=== PATIENT | female | born 1935 | race Caucasian/White ===

== ENCOUNTER 2019-01-08 17:20 | Inpatient (IN) | payer OTHER ==
[~2019-01-08] VITALS: Ht 165.1 cm; Wt 88.2 kg
[2019-01-08] MEDS ORDERED: IV NORMAL SALINE 1000ML BAG 1,000 ML IV SCH (17:39)
[2019-01-08] MEDS ORDERED: fentaNYL PF VIAL 100 MCG/2 ML VIAL IV PRN (17:45)
[2019-01-08] MEDS ORDERED: ONDANSETRON PF 4 MG/2 ML VIAL. IV ONE (17:45)
--- NOTE | 2019-01-08 17:46 | PHYS DOC ---
Adult General Chief Complaint Chief Complaint: CHEST PAIN HPI HPI Patient is an 83-year-old female who presents today with complaint of right upper quadrant abdominal pain that started yesterday. She states that symptoms started out as what she described as severe heartburn on Monday in the center of her chest. She states that the heartburn resolved on Monday and then yesterday she started having the pain in her right upper abdomen that she states is worsened with deep breathing. She denies any nausea, vomiting or diaphoresis. Currently she rates the pain at a 5 out of 10. She states that at its worse it's been a 10 out of 10. She denies any cough or shortness of breath. She also denies any fever. Patient states that she has had no diarrhea.[] Review of Systems Review of Systems Constitutional: Denies fever or chills [] Respiratory: Denies cough or shortness of breath [] Cardiovascular: No additional information not addressed in HPI [] GI: Complains of right upper quadrant abdominal pain without vomiting or diarrhea [] : Denies dysuria or hematuria [] Musculoskeletal: Denies back pain or joint pain [] Integument: Denies rash or skin lesions [] Neurologic: Denies headache, focal weakness or sensory changes [] All other systems were reviewed and found to be within normal limits, except as documented in this note. Allergies Allergies Allergies Coded Allergies Type Severity Reaction Last Updated Verified prednisone Allergy Intermediate 01/08/19 Yes Physical Exam Physical Exam Constitutional: Well developed, well nourished, no acute distress, non-toxic appearance. [] HENT: Normocephalic, atraumatic, bilateral external ears normal, oropharynx moist, no oral exudates, nose normal. [] Eyes: PERRLA, EOMI, conjunctiva normal, no discharge. [] Neck: Normal range of motion, no tenderness, supple, no stridor. [] Cardiovascular: Regular rate and rhythm[] Lungs & Thorax: Bilateral breath sounds clear to auscultation [] Abdomen: Bowel sounds normal, soft, with moderate right upper quadrant tenderness. [] Skin: Warm, dry, no erythema, no rash. [] Extremities: No tenderness, no cyanosis, no clubbing, ROM intact, no edema. [] Neurologic: Alert and oriented X 3, no focal deficits noted. [] EKG EKG [] Interpretation Time: EKG demonstrates normal sinus rhythm with rate of 94. Radiology/Procedures Radiology/Procedures [] Course & Med Decision Making Course & Med Decision Making Pertinent Labs and Imaging studies reviewed. (See chart for details) [] Dragon Disclaimer Dragon Disclaimer This electronic medical record was generated, in whole or in part, using a voice recognition dictation system. SUDHIR BRAGA Jr. DO Jan 08, 2019 17:46
[2019-01-08 17:47] LABS: BASO # 0.1 x10^3/uL (0.0-0.2); BASO % 1 % (0-3); EOS # 0.1 x10^3/uL (0.0-0.7); EOS % 1 % (0-3); LYMPH # 1.4 x10^3/uL (1.0-4.8); LYMPH % 9 % (24-48); MEAN CORPUSCULAR HEMOGLOBIN 30 pg (25-35); MEAN CORPUSCULAR HGB CONC 33 g/dL (31-37); MEAN CORPUSCULAR VOLUME 91 fL (79-100); MONO # 1.6 x10^3/uL (0.0-1.1); MONO % 10 % (0-9); NEUT # 12.3 x10^3/uL (1.8-7.7); NEUT % 80 % (31-73); PLATELET COUNT 297 x10^3/uL (140-400); RED BLOOD COUNT 4.63 x10^6/uL (3.50-5.40); RED CELL DISTRIBUTION WIDTH 13.5 % (11.5-14.5); WHITE BLOOD COUNT 15.4 x10^3/uL (4.0-11.0)
[2019-01-08 17:56] LABS: CALCIUM 9.6 mg/dL (8.5-10.1); CREATININE 1.7 mg/dL (0.6-1.0); GFR 28.8; POTASSIUM 3.2 mmol/L (3.5-5.1)
[2019-01-08 18:02] LABS: ALBUMIN 3.1 g/dL (3.4-5.0); ALBUMIN/GLOBULIN RATIO 0.6 (1.0-1.7); TOTAL BILIRUBIN 1.4 mg/dL (0.2-1.0); TOTAL PROTEIN 8.3 g/dL (6.4-8.2)
[2019-01-08 18:09] LABS: BILIRUBIN,URINE SMALL (NEG); CLARITY,URINE CLOUDY; COLOR,URINE AMBER; NITRITE,URINE NEGATIVE (NEG); PROTEIN,URINE 30 mg/dL (NEG-TRACE)
[2019-01-08 18:17] LABS: BACTERIA,URINE MANY /HPF (0-FEW); HYALINE CASTS, URINE FEW /HPF; RBC,URINE OCC /HPF (0-2); SQUAMOUS EPITHELIAL CELL,UR MANY /LPF
[2019-01-08] MEDS ORDERED: PIPERACILLIN/TAZOBACTAM 3.375 GM in IV NORMAL SALINE 50ML 50 ML IV ONE (19:30)
--- NOTE | 2019-01-08 20:02 | RAD ---
Exam: Ultrasound abdomen limited Indication: Right upper quadrant pain Technique: Real-time grayscale and color Doppler images of the right upper quadrant were obtained by the department valve pipe irrigator. Comparisons: None FINDINGS: Liver demonstrates increased echogenicity. Hepatopedal flow is noted within the portal vein. Gallbladder is distended measuring 9 cm in length. Gallstone is noted at the gallbladder neck. There is mild gallbladder wall thickening. Sonographic Cox sign is positive per the department valve pipe irrigator. Right kidney measures 10.8 cm in length. No hydronephrosis. Visualized portions of the aorta and IVC are unremarkable. Uterus is not well seen IMPRESSION: 1. Findings suspicious for acute cholecystitis. HIDA scan can BE performed for definitive evaluation. 2. Hepatic steatosis. 3. No right-sided hydronephrosis. Electronically signed by: Syed Grewal MD (01/08/2019 7:59 PM) [facility]
[2019-01-08] MEDS ORDERED: ONDANSETRON PF 4 MG/2 ML VIAL. IVP PRN (20:30)
[2019-01-08] MEDS ORDERED: LABETALOL 20 MG/4 ML DISP.SYRIN. IVP PRN (20:30)
[2019-01-08] MEDS ORDERED: fentaNYL PF VIAL 100 MCG/2 ML VIAL IVP PRN (20:30)
[2019-01-08] MEDS ORDERED: ACETAMINOPHEN/CODEINE 300/30MG TABLET. PO PRN (20:30)
[2019-01-08] MEDS ORDERED: TEMAZEPAM 7.5 MG CAPSULE PO PRN (20:30)
[2019-01-08] MEDS: POTASSIUM CL 20MEQ D5-0.45NACL 1,000 ML IV SCH (20:30)
[2019-01-08] MEDS ORDERED: ACETAMINOPHEN 500 MG TABLET PO PRN (20:30)
[2019-01-08] MEDS ORDERED: PANTOPRAZOLE IV PUSH 40 MG VIAL. IVP ONE (20:30)
[2019-01-08] MEDS ORDERED: CALCIUM CARBONATE 500 MG TAB.CHEW PO PRN (20:30)
[2019-01-08] MEDS ORDERED: guaiFENesin DM 200MG/20MG 10 ML SYRUP PO PRN (20:30)
[2019-01-08 21:10] VITALS: BP 144/57
--- NOTE | 2019-01-08 21:11 | RAD ---
Ventilation perfusion exam History: Chest pain Comparison: None Findings: Ventilation perfusion examination was performed. Ventilation images were acquired after the patient inhaled 20 mCi mCi of [id number]. Perfusion images were acquired after the patient was injected with 6.6 mCi of technetium 99m MAA. There is mild heterogeneity of radiotracer on ventilation images. No mismatched perfusion defect is identified. Impression: There is low probability for pulmonary embolic disease. Electronically signed by: Syed Grewal MD (01/08/2019 9:08 PM) [facility]
--- NOTE | 2019-01-08 22:01 | RAD ---
EXAM: CHEST ONE VIEW. HISTORY: Chest and right upper quadrant. COMPARISON: None. FINDINGS: A frontal view of the chest is obtained. Linear opacities in the right base most likely indicate atelectasis. There is no pneumothorax or pleural effusion. The heart is mildly enlarged. There are atherosclerotic calcifications of the aorta. IMPRESSION: 1. Mild cardiomegaly. Electronically signed by: Zackary Hernandez MD (01/08/2019 9:59 PM) [facility]
[2019-01-08 23:42] VITALS: BP 154/62
[2019-01-09] VITALS (12 sets, daily range): BP systolic 138–172; BP diastolic 57–75
[2019-01-09] MEDS ORDERED: HYDR50TA6 PO (05:59)
[2019-01-09] MEDS ORDERED: METO100T7 PO (06:03)
[2019-01-09] MEDS ORDERED: CHOL10003 PO (06:03)
[2019-01-09] MEDS ORDERED: KRIL500C PO (06:03)
[2019-01-09] MEDS ORDERED: OLME20TA17 PO (06:03)
[2019-01-09] MEDS ORDERED: OMEP20CA10 PO (06:03)
[2019-01-09 06:38] LABS: BASO % 0 % (0-3); EOS # 0.1 x10^3/uL (0.0-0.7); EOS % 1 % (0-3); HEMATOCRIT 36.5 % (36.0-47.0); HEMOGLOBIN 12.1 g/dL (12.0-15.5); LYMPH # 0.4 x10^3/uL (1.0-4.8); LYMPH % 3 % (24-48); MEAN CORPUSCULAR HEMOGLOBIN 30 pg (25-35); MEAN CORPUSCULAR HGB CONC 33 g/dL (31-37); MEAN CORPUSCULAR VOLUME 92 fL (79-100); MONO # 0.6 x10^3/uL (0.0-1.1); MONO % 5 % (0-9); NEUT # 9.6 x10^3/uL (1.8-7.7); NEUT % 90 % (31-73); PLATELET COUNT 191 x10^3/uL (140-400); RED BLOOD COUNT 3.98 x10^6/uL (3.50-5.40); RED CELL DISTRIBUTION WIDTH 13.4 % (11.5-14.5); WHITE BLOOD COUNT 10.6 x10^3/uL (4.0-11.0)
[2019-01-09 06:42] LABS: CALCIUM 8.5 mg/dL (8.5-10.1); CREATININE 1.4 mg/dL (0.6-1.0)
[2019-01-09 06:44] LABS: POTASSIUM 2.8 mmol/L (3.5-5.1)
--- NOTE | 2019-01-09 06:45 | EKG ---
[facility] [address] [place] [address] Test Date: 2019-01-08 Test Time: 17:29:12 Pat Name: MARIA ISABEL HARRINGTON Department: Room: Gender: F [employer]: : 1935 Requested By: SUDHIR BRAGA Order Number: [id number] Reading MD: Measurements Intervals [place] Rate: 94 P: 6 TX: 176 QRS: 10 QRSD: 84 T: 16 QT: 356 QTc: 450 Interpretive Statements SINUS RHYTHM T ABNORMALITY IN ANTEROLATERAL LEADS NON SPECIFIC ST DEPRESSION ABNORMAL ECG No previous ECG available for comparison
[2019-01-09] MEDS ORDERED: PANTOPRAZOLE IV PUSH 40 MG VIAL. IVP SCH (07:30)
[2019-01-09] MEDS ORDERED: POTASSIUM CHLORIDE 20 MEQ TABLET.ER. PO ONE (08:00)
[2019-01-09] MEDS ORDERED: IV RINGERS,LACTATED 1000ML 1,000 ML IV SCH (08:39)
[2019-01-09] MEDS ORDERED: HYDROmorphone 2 MG/ML VIAL IV PRN (08:45)
[2019-01-09] MEDS ORDERED: LIDOCAINE 1% PF 2 ML VIAL. ID PRN (08:45)
[2019-01-09] MEDS ORDERED: fentaNYL PF VIAL 100 MCG/2 ML VIAL IV PRN (08:45)
[2019-01-09] MEDS ORDERED: ONDANSETRON PF 4 MG/2 ML VIAL. IV PRN (08:45)
[2019-01-09] MEDS ORDERED: MORPHINE SULFATE 2 MG/ML VIAL. IV PRN (08:45)
[2019-01-09] MEDS ORDERED: PROCHLORPERAZINE 10 MG/2 ML VIAL. IV PRN (08:45)
--- NOTE | 2019-01-09 08:47 | PDOC2 ---
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 Associated nausea, loss of appetite. Pain improved, however family concerned with possible heart attack. Evaluation revealed imaging concerning for acute cholecystitis.. No similar symptoms in past. No constipation or diarrhea Past Medical History Cardiovascular: HTN GI: GERD Past Surgical History Past Surgical History: Tonsillectomy, No pertinent history Family History Family History: Other (noncontributory to current illness ) Social History No ALCOHOL: none Drugs: None Lives: with Family Current Medications Current Medications Current Medications Fentanyl Citrate (Fentanyl 2ml Vial) 25 mcg PRN Q15MIN PRN IV PAIN GREATER THAN 3/10 Last administered on 01/08/19at 17:59; Start 01/08/19 at 17:45; Stop 01/08/19 at 20:24; Status DC Sodium Chloride 1,000 ml @ 1,000 mls/hr Q1H IV Last administered on 01/08/19at 17:58; Start 01/08/19 at 17:39; Stop 01/08/19 at 18:38; Status DC Ondansetron HCl (Zofran) 4 mg 1X ONCE IV Last administered on 01/08/19at 17:58; Start 01/08/19 at 17:45; Stop 01/08/19 at 17:46; Status DC Piperacillin Sod/ Tazobactam Sod 3.375 gm/Sodium Chloride 50 ml @ 100 mls/hr 1X ONCE IV Last administered on 01/08/19at 19:40; Start 01/08/19 at 19:30; Stop 01/08/19 at 19:59; Status DC Potassium Chloride/Dextrose/ Sod Cl 1,000 ml @ 80 mls/hr [id number] IV Last administered on 01/08/19at 20:30; Start 01/08/19 at 20:30 Fentanyl Citrate (Fentanyl 2ml Vial) 50 mcg PRN Q2HR PRN IVP PAIN; Start 01/08/19 at 20:30 Ondansetron HCl (Zofran) 4 mg PRN Q6HRS PRN IVP NAUSEA/VOMITING; Start 01/08/19 at 20:30 Acetaminophen (Tylenol) 500 mg PRN Q6HRS PRN PO MILD PAIN / TEMP; Start 01/08/19 at 20:30 Acetaminophen/ Codeine Phosphate (Tylenol #3) 1 tab PRN Q6HRS PRN PO MODERATE PAIN; Start 01/08/19 at 20:30 Temazepam (Restoril) 7.5 mg PRN QHS PRN PO INSOMNIA; Start 01/08/19 at 20:30 Labetalol HCl (Normodyne Iv Push) 10 mg PRN Q2HR PRN IVP HYPERTENSION; Start 01/08/19 at 20:30 Pantoprazole Sodium (PROTONIX VIAL for IV PUSH) 40 mg 1X ONCE IVP Last administered on 01/08/19at 22:47; Start 01/08/19 at 20:30; Stop 01/08/19 at 20:31; Status DC Pantoprazole Sodium (PROTONIX VIAL for IV PUSH) 40 mg DAILYAC IVP ; Start 01/09/19 at 07:30 Guaifenesin (Robitussin Dm) 10 ml PRN Q6HRS PRN PO COUGH; Start 01/08/19 at 20:30 Calcium Carbonate/ Glycine (Tums) 500 mg PRN AFTMEALHC PRN PO INDIGESTION; Start 01/08/19 at 20:30 Potassium Chloride (Klor-Con) 20 meq 1X ONCE PO ; Start 01/09/19 at 08:00; Stop 01/09/19 at 08:01; Status DC Potassium Chloride/Water 100 ml @ 100 mls/hr Q1H IV ; Start 01/09/19 at 08:00; Stop 01/09/19 at 09:59 Ondansetron HCl (Zofran) 4 mg PRN Q6HRS PRN IV NAUSEA/VOMITING; Start 01/09/19 at 08:45; Stop 01/10/19 at 08:44 Fentanyl Citrate (Fentanyl 2ml Vial) 25 mcg PRN Q5MIN PRN IV MILD PAIN 1-3; Start 01/09/19 at 08:45; Stop 01/10/19 at 08:44 Fentanyl Citrate (Fentanyl 2ml Vial) 50 mcg PRN Q5MIN PRN IV MODERATE TO SEVERE PAIN; Start 01/09/19 at 08:45; Stop 01/10/19 at 08:44 Morphine Sulfate (Morphine Sulfate) 1 mg PRN Q10MIN PRN IV SEVERE PAIN 7-10; S tart 01/09/19 at 08:45; Stop 01/10/19 at 08:44 Ringer's Solution 1,000 ml @ 30 mls/hr Q24H IV ; Start 01/09/19 at 08:39; Sto p 01/09/19 at 20:38 Lidocaine HCl (Xylocaine-Mpf 1% 2ml Vial) 2 ml 1X PRN PRN ID IV START; Start 01/09/19 at 08:45; Stop 01/10/19 at 08:44 Hydromorphone HCl (Dilaudid) 0.5 mg PRN Q10MIN PRN IV SEV PAIN, Second choice; Start 01/09/19 at 08:45; Stop 01/10/19 at 08:44 Prochlorperazine Edisylate (Compazine) 5 mg PACU PRN PRN IV NAUSEA, MRX1; Start 01/09/19 at 08:45; Stop 01/10/19 at 08:44 Active Scripts Active Reported Omeprazole 20 Mg Capsule.dr 1 Cap PO DAILY Vitamin D3 (Cholecalciferol (Vitamin D3)) 1,000 Unit Tablet 2 Tab PO WEEKLY Krill Oil 500 Mg Capsule 500 Mg PO DAILY Metoprolol Tartrate 100 Mg Tablet 2 Tab PO BID Benicar (Olmesartan Medoxomil) 20 Mg Tablet 1 Tab PO DAILY Hydrochlorothiazide Tablet (Hydrochlorothiazide) 50 Mg Tablet 25 Mg PO DAILY Allergies Allergies: Coded Allergies: prednisone (Verified Allergy, Intermediate, 01/08/19) ROS General: No: Chills, Other (fevers ) PSYCHOLOGICAL ROS: No: Anxiety, Depression Eyes: No Blurry vision, No Double vision HEENT: No: Heacaches, Sore Throat Hematological and Lymphatic: No: Bleeding Problems, Blood Clots Respiratory: No: Cough, Shortness of breath Cardiovascular: yes Chest Pain; No Palpitations Gastrointestinal: Yes Other (see hpi) Genitourinary: No Dysuria, No Hematuria Musculoskeletal: No Joint Pain, No Muscle Pain Neurological: No Impaired Coord/balance, No Numbness/Tingling Skin: No Pruritus, No Rash Physical Exam General: Alert, Oriented X3, Cooperative, No acute distress HEENT: PERRLA, Mucous membr. moist/pink Lungs: Clear to auscultation, Normal air movement Heart: Regular rate, Normal S1, Normal S2 Abdomen: Soft, Other (RUQ TTP ) Extremities: No clubbing, No cyanosis Skin: No rashes, No breakdown Neuro: Normal gait, Normal speech Psych/Mental Status: Mental status NL, Mood NL MUSCULOSKELETAL: No deformity, No swelling Vitals VITALS Vital Signs Date Time Temp Pulse Resp B/P (MAP) Pulse Ox O2 Delivery O2 Flow Rate FiO2 01/09/19 07:15 98.6 76 20 141/57 (85) 95 Room Air 98.6 Labs Labs Laboratory Tests Test 01/08/19 17:36 01/08/19 18:00 01/09/19 03:22 White Blood Count 15.4 x10^3/uL (4.0-11.0) 10.6 x10^3/uL (4.0-11.0) Red Blood Count 4.63 x10^6/uL (3.50-5.40) 3.98 x10^6/uL (3.50-5.40) Hemoglobin 14.0 g/dL (12.0-15.5) 12.1 g/dL (12.0-15.5) Hematocrit 42.0 % (36.0-47.0) 36.5 % (36.0-47.0) Mean Corpuscular Volume 91 fL (79-100) 92 fL (79-100) Mean Corpuscular Hemoglobin 30 pg (25-35) 30 pg (25-35) Mean Corpuscular Hemoglobin Concent 33 g/dL (31-37) 33 g/dL (31-37) Red Cell Distribution Width 13.5 % (11.5-14.5) 13.4 % (11.5-14.5) Platelet Count 297 x10^3/uL (140-400) 191 x10^3/uL (140-400) Neutrophils (%) (Auto) 80 % (31-73) 90 % (31-73) Lymphocytes (%) (Auto) 9 % (24-48) 3 % (24-48) Monocytes (%) (Auto) 10 % (0-9) 5 % (0-9) Eosinophils (%) (Auto) 1 % (0-3) 1 % (0-3) Basophils (%) (Auto) 1 % (0-3) 0 % (0-3) Neutrophils # (Auto) 12.3 x10^3/uL (1.8-7.7) 9.6 x10^3/uL (1.8-7.7) Lymphocytes # (Auto) 1.4 x10^3/uL (1.0-4.8) 0.4 x10^3/uL (1.0-4.8) Monocytes # (Auto) 1.6 x10^3/uL (0.0-1.1) 0.6 x10^3/uL (0.0-1.1) Eosinophils # (Auto) 0.1 x10^3/uL (0.0-0.7) 0.1 x10^3/uL (0.0-0.7) Basophils # (Auto) 0.1 x10^3/uL (0.0-0.2) 0.0 x10^3/uL (0.0-0.2) D-Dimer (Amalia) 2.65 ug/mlFEU (0.00-0.50) Sodium Level 141 mmol/L (136-145) 141 mmol/L (136-145) Potassium Level 3.2 mmol/L (3.5-5.1) 2.8 mmol/L (3.5-5.1) Chloride Level 101 mmol/L (98-107) 104 mmol/L (98-107) Carbon Dioxide Level 26 mmol/L (21-32) 25 mmol/L (21-32) Anion Gap 14 (6-14) 12 (6-14) Blood Urea Nitrogen 29 mg/dL (7-20) 25 mg/dL (7-20) Creatinine 1.7 mg/dL (0.6-1.0) 1.4 mg/dL (0.6-1.0) Estimated GFR (Cockcroft-Gault) 28.8 36.0 BUN/Creatinine Ratio 17 (6-20) Glucose Level 133 mg/dL (70-99) 115 mg/dL (70-99) Calcium Level 9.6 mg/dL (8.5-10.1) 8.5 mg/dL (8.5-10.1) Total Bilirubin 1.4 mg/dL (0.2-1.0) Aspartate Amino Transf (AST/SGOT) 19 U/L (15-37) Alanine Aminotransferase (ALT/SGPT) 18 U/L (14-59) Alkaline Phosphatase 162 U/L (46-116) Troponin I Quantitative < 0.017 ng/mL (0.000-0.055) Total Protein 8.3 g/dL (6.4-8.2) Albumin 3.1 g/dL (3.4-5.0) Albumin/Globulin Ratio 0.6 (1.0-1.7) Lipase 149 U/L (73-393) Urine Collection Type Unknown Urine Color Vera Urine Clarity Cloudy Urine pH 5.0 Urine Specific [place] 1.020 Urine Protein 30 mg/dL (NEG-TRACE) Urine Glucose (UA) Negative mg/dL (NEG) Urine Ketones (Stick) Negative mg/dL (NEG) Urine Blood Trace (NEG) Urine Nitrite Negative (NEG) Urine Bilirubin Small (NEG) Urine Urobilinogen Dipstick 1.0 mg/dL (0.2 mg/dL) Urine Leukocyte Esterase Moderate (NEG) Urine RBC Occ /HPF (0-2) Urine WBC 5-10 /HPF (0-4) Urine Squamous Epithelial Cells Many /LPF Urine Bacteria Many /HPF (0-FEW) Urine Hyaline Casts Few /HPF Urine Mucus Mod /LPF Laboratory Tests Test 01/08/19 17:36 01/08/19 18:00 01/09/19 03:22 White Blood Count 15.4 x10^3/uL (4.0-11.0) 10.6 x10^3/uL (4.0-11.0) Red Blood Count 4.63 x10^6/uL (3.50-5.40) 3.98 x10^6/uL (3.50-5.40) Hemoglobin 14.0 g/dL (12.0-15.5) 12.1 g/dL (12.0-15.5) Hematocrit 42.0 % (36.0-47.0) 36.5 % (36.0-47.0) Mean Corpuscular Volume 91 fL (79-100) 92 fL (79-100) Mean Corpuscular Hemoglobin 30 pg (25-35) 30 pg (25-35) Mean Corpuscular Hemoglobin Concent 33 g/dL (31-37) 33 g/dL (31-37) Red Cell Distribution Width 13.5 % (11.5-14.5) 13.4 % (11.5-14.5) Platelet Count 297 x10^3/uL (140-400) 191 x10^3/uL (140-400) Neutrophils (%) (Auto) 80 % (31-73) 90 % (31-73) Lymphocytes (%) (Auto) 9 % (24-48) 3 % (24-48) Monocytes (%) (Auto) 10 % (0-9) 5 % (0-9) Eosinophils (%) (Auto) 1 % (0-3) 1 % (0-3) Basophils (%) (Auto) 1 % (0-3) 0 % (0-3) Neutrophils # (Auto) 12.3 x10^3/uL (1.8-7.7) 9.6 x10^3/uL (1.8-7.7) Lymphocytes # (Auto) 1.4 x10^3/uL (1.0-4.8) 0.4 x10^3/uL (1.0-4.8) Monocytes # (Auto) 1.6 x10^3/uL (0.0-1.1) 0.6 x10^3/uL (0.0-1.1) Eosinophils # (Auto) 0.1 x10^3/uL (0.0-0.7) 0.1 x10^3/uL (0.0-0.7) Basophils # (Auto) 0.1 x10^3/uL (0.0-0.2) 0.0 x10^3/uL (0.0-0.2) D-Dimer (Amalia) 2.65 ug/mlFEU (0.00-0.50) Sodium Level 141 mmol/L (136-145) 141 mmol/L (136-145) Potassium Level 3.2 mmol/L (3.5-5.1) 2.8 mmol/L (3.5-5.1) Chloride Level 101 mmol/L (98-107) 104 mmol/L (98-107) Carbon Dioxide Level 26 mmol/L (21-32) 25 mmol/L (21-32) Anion Gap 14 (6-14) 12 (6-14) Blood Urea Nitrogen 29 mg/dL (7-20) 25 mg/dL (7-20) Creatinine 1.7 mg/dL (0.6-1.0) 1.4 mg/dL (0.6-1.0) Estimated GFR (Cockcroft-Gault) 28.8 36.0 BUN/Creatinine Ratio 17 (6-20) Glucose Level 133 mg/dL (70-99) 115 mg/dL (70-99) Calcium Level 9.6 mg/dL (8.5-10.1) 8.5 mg/dL (8.5-10.1) Total Bilirubin 1.4 mg/dL (0.2-1.0) Aspartate Amino Transf (AST/SGOT) 19 U/L (15-37) Alanine Aminotransferase (ALT/SGPT) 18 U/L (14-59) Alkaline Phosphatase 162 U/L (46-116) Troponin I Quantitative < 0.017 ng/mL (0.000-0.055) Total Protein 8.3 g/dL (6.4-8.2) Albumin 3.1 g/dL (3.4-5.0) Albumin/Globulin Ratio 0.6 (1.0-1.7) Lipase 149 U/L (73-393) Urine Collection Type Unknown Urine Color Vera Urine Clarity Cloudy Urine pH 5.0 Urine Specific [place] 1.020 Urine Protein 30 mg/dL (NEG-TRACE) Urine Glucose (UA) Negative mg/dL (NEG) Urine Ketones (Stick) Negative mg/dL (NEG) Urine Blood Trace (NEG) Urine Nitrite Negative (NEG) Urine Bilirubin Small (NEG) Urine Urobilinogen Dipstick 1.0 mg/dL (0.2 mg/dL) Urine Leukocyte Esterase Moderate (NEG) Urine RBC Occ /HPF (0-2) Urine WBC 5-10 /HPF (0-4) Urine Squamous Epithelial Cells Many /LPF Urine Bacteria Many /HPF (0-FEW) Urine Hyaline Casts Few /HPF Urine Mucus Mod /LPF Assessment/Plan Assessment/Plan acute cholecystitis plan lap sudeep today GENO NATH MD 01/09/19 3511: CONSULT Assessment/Plan Assessment/Plan Pt seen and examined by me independently; Pt complained of upper abdominal pain over the weekend, located in upper mid abdomen, radiated to the back, non nausea or vomiting; ER evaluation consistent with acute cholecystitis; PMH/PSH/ROS/SH as above; exam: alert, oriented, no distress, lungs clear, heart RR and R, abdomen soft, tender RUQ, guarding with palpation, ext neg for edema; Labs/xrays reviewed; A/P) Acute cholecystitis, recommend lap sudeep. The details and risks of the surgery were discussed with the patient. She understands and would like to proceed. SHILO DELGADILLO APRN Jan 09, 2019 08:47 GENO NATH MD Jan 09, 2019 09:11
[2019-01-09 09:50] LABS: % BANDS 1 % (0-9); % LYMPHS 3 % (24-48); % MONOS 4 % (0-10); % SEGS 92 % (35-66)
[2019-01-09 09:51] LABS: PLT ESTIMATE ADEQUATE (ADEQUATE)
[2019-01-09] MEDS ORDERED: PIPERACILLIN/TAZOBACTAM 3.375 GM in IV NORMAL SALINE 50ML 50 ML IV SCH (10:00)
[2019-01-09] MEDS: POTASSIUM CHLORIDE 10MEQ 100 ML IV SCH ×2 (10:10→19:51)
[2019-01-09] MEDS ORDERED: LIDOCAINE 2% PF 5 ML VIAL. ONE (10:13)
[2019-01-09] MEDS ORDERED: ROCURONIUM 50 MG/5 ML VIAL. ONE (10:13)
[2019-01-09] MEDS ORDERED: PROPOFOL 20 ML IV ONE (10:13)
--- NOTE | 2019-01-09 10:36 | PDOC ---
PROGRESS NOTES History of Present Illness History of Present Illness IMPRESSION Findings suspicious for acute cholecystitis Ultrasound of the right upper quadrant shows that patient has a gallstone and sludge as well as thickening of the gallbladder wall. No pericholecystic fluid seen. AST and ALT are within normal limits. Alk phosphatase is elevated. SEVERE HYPOKALEMIA, ON REPLACEMENT IV antibiotics started in the ED. 28 MIN PT EXAM, CHART REVIEW, > 50% OF TIME SPENT WITH EXAM, CHART REVIEW, PT CARE COORDINATION Operative Note Operative Note Operative Note Operative Note: Preoperative Diagnosis: Acute cholecystitis Postoperative Diagnosis: Same Procedure: Laparoscopic cholecystectomy with intraoperative cholangiogram Surgeons: Jose Med Specialist: Iris FELIPE Anesthesia: Gen. Estimated Blood Loss: 20 mL Specimen: Gallbladder to pathology Drains: None Complications: None Vitals Vitals Vital Signs Date Time Temp Pulse Resp B/P (MAP) Pulse Ox O2 Delivery O2 Flow Rate FiO2 01/09/19 07:15 98.6 76 20 141/57 (85) 95 Room Air 98.6 Physical Exam General: Alert, Oriented X3, Cooperative, No acute distress Heart: Regular rate, Normal S1, Normal S2 Abdomen: Soft, Other (RUQ TTP ) Extremities: No clubbing, No cyanosis Skin: No rashes, No breakdown Labs LABS IMPRESSION: Cholangiogram as described above. No filling of the gallbladder and persistent short segment narrowing of the common bile duct just proximal to the level of the ampulla at least on [address] procedural note for further details. Exam: Ultrasound abdomen limited Indication: Right upper quadrant pain Technique: Real-time grayscale and color Doppler images of the right upper quadrant were obtained by the department restaurant host/hostess. Comparisons: None FINDINGS: Liver demonstrates increased echogenicity. Hepatopedal flow is noted within the portal vein. Gallbladder is distended measuring 9 cm in length. Gallstone is noted at the gallbladder neck. There is mild gallbladder wall thickening. Sonographic Cox sign is positive per the department restaurant host/hostess. Right kidney measures 10.8 cm in length. No hydronephrosis. Visualized portions of the aorta and IVC are unremarkable. Uterus is not well seen IMPRESSION: 1. Findings suspicious for acute cholecystitis. HIDA scan can BE performed for definitive evaluation. 2. Hepatic steatosis. 3. No right-sided hydronephrosis. Electronically signed by: Syed Bocanegra MD (01/08/2019 7:59 PM) [place] [id number] DICTATED and SIGNED BY: SYED BOCANEGRA MD DATE: 01/08/191958 Laboratory Tests Test 01/08/19 17:36 01/08/19 18:00 01/09/19 03:22 White Blood Count 15.4 x10^3/uL (4.0-11.0) 10.6 x10^3/uL (4.0-11.0) Red Blood Count 4.63 x10^6/uL (3.50-5.40) 3.98 x10^6/uL (3.50-5.40) Hemoglobin 14.0 g/dL (12.0-15.5) 12.1 g/dL (12.0-15.5) Hematocrit 42.0 % (36.0-47.0) 36.5 % (36.0-47.0) Mean Corpuscular Volume 91 fL (79-100) 92 fL (79-100) Mean Corpuscular Hemoglobin 30 pg (25-35) 30 pg (25-35) Mean Corpuscular Hemoglobin Concent 33 g/dL (31-37) 33 g/dL (31-37) Red Cell Distribution Width 13.5 % (11.5-14.5) 13.4 % (11.5-14.5) Platelet Count 297 x10^3/uL (140-400) 191 x10^3/uL (140-400) Neutrophils (%) (Auto) 80 % (31-73) 90 % (31-73) Lymphocytes (%) (Auto) 9 % (24-48) 3 % (24-48) Monocytes (%) (Auto) 10 % (0-9) 5 % (0-9) Eosinophils (%) (Auto) 1 % (0-3) 1 % (0-3) Basophils (%) (Auto) 1 % (0-3) 0 % (0-3) Neutrophils # (Auto) 12.3 x10^3/uL (1.8-7.7) 9.6 x10^3/uL (1.8-7.7) Lymphocytes # (Auto) 1.4 x10^3/uL (1.0-4.8) 0.4 x10^3/uL (1.0-4.8) Monocytes # (Auto) 1.6 x10^3/uL (0.0-1.1) 0.6 x10^3/uL (0.0-1.1) Eosinophils # (Auto) 0.1 x10^3/uL (0.0-0.7) 0.1 x10^3/uL (0.0-0.7) Basophils # (Auto) 0.1 x10^3/uL (0.0-0.2) 0.0 x10^3/uL (0.0-0.2) D-Dimer (Amalia) 2.65 ug/mlFEU (0.00-0.50) Sodium Level 141 mmol/L (136-145) 141 mmol/L (136-145) Potassium Level 3.2 mmol/L (3.5-5.1) 2.8 mmol/L (3.5-5.1) Chloride Level 101 mmol/L (98-107) 104 mmol/L (98-107) Carbon Dioxide Level 26 mmol/L (21-32) 25 mmol/L (21-32) Anion Gap 14 (6-14) 12 (6-14) Blood Urea Nitrogen 29 mg/dL (7-20) 25 mg/dL (7-20) Creatinine 1.7 mg/dL (0.6-1.0) 1.4 mg/dL (0.6-1.0) Estimated GFR (Cockcroft-Gault) 28.8 36.0 BUN/Creatinine Ratio 17 (6-20) Glucose Level 133 mg/dL (70-99) 115 mg/dL (70-99) Calcium Level 9.6 mg/dL (8.5-10.1) 8.5 mg/dL (8.5-10.1) Total Bilirubin 1.4 mg/dL (0.2-1.0) Aspartate Amino Transf (AST/SGOT) 19 U/L (15-37) Alanine Aminotransferase (ALT/SGPT) 18 U/L (14-59) Alkaline Phosphatase 162 U/L (46-116) Troponin I Quantitative < 0.017 ng/mL (0.000-0.055) Total Protein 8.3 g/dL (6.4-8.2) Albumin 3.1 g/dL (3.4-5.0) Albumin/Globulin Ratio 0.6 (1.0-1.7) Lipase 149 U/L (73-393) Urine Collection Type Unknown Urine Color Vera Urine Clarity Cloudy Urine pH 5.0 Urine Specific [place] 1.020 Urine Protein 30 mg/dL (NEG-TRACE) Urine Glucose (UA) Negative mg/dL (NEG) Urine Ketones (Stick) Negative mg/dL (NEG) Urine Blood Trace (NEG) Urine Nitrite Negative (NEG) Urine Bilirubin Small (NEG) Urine Urobilinogen Dipstick 1.0 mg/dL (0.2 mg/dL) Urine Leukocyte Esterase Moderate (NEG) Urine RBC Occ /HPF (0-2) Urine WBC 5-10 /HPF (0-4) Urine Squamous Epithelial Cells Many /LPF Urine Bacteria Many /HPF (0-FEW) Urine Hyaline Casts Few /HPF Urine Mucus Mod /LPF Segmented Neutrophils % 92 % (35-66) Band Neutrophils % 1 % (0-9) Lymphocytes % 3 % (24-48) Monocytes % 4 % (0-10) Platelet Estimate Adequate (ADEQUATE) Comment Review of Relevant I have reviewed the following items cookie (where applicable) has been applied. Labs Laboratory Tests Test 01/08/19 17:36 01/08/19 18:00 01/09/19 03:22 White Blood Count 15.4 x10^3/uL (4.0-11.0) 10.6 x10^3/uL (4.0-11.0) Red Blood Count 4.63 x10^6/uL (3.50-5.40) 3.98 x10^6/uL (3.50-5.40) Hemoglobin 14.0 g/dL (12.0-15.5) 12.1 g/dL (12.0-15.5) Hematocrit 42.0 % (36.0-47.0) 36.5 % (36.0-47.0) Mean Corpuscular Volume 91 fL (79-100) 92 fL (79-100) Mean Corpuscular Hemoglobin 30 pg (25-35) 30 pg (25-35) Mean Corpuscular Hemoglobin Concent 33 g/dL (31-37) 33 g/dL (31-37) Red Cell Distribution Width 13.5 % (11.5-14.5) 13.4 % (11.5-14.5) Platelet Count 297 x10^3/uL (140-400) 191 x10^3/uL (140-400) Neutrophils (%) (Auto) 80 % (31-73) 90 % (31-73) Lymphocytes (%) (Auto) 9 % (24-48) 3 % (24-48) Monocytes (%) (Auto) 10 % (0-9) 5 % (0-9) Eosinophils (%) (Auto) 1 % (0-3) 1 % (0-3) Basophils (%) (Auto) 1 % (0-3) 0 % (0-3) Neutrophils # (Auto) 12.3 x10^3/uL (1.8-7.7) 9.6 x10^3/uL (1.8-7.7) Lymphocytes # (Auto) 1.4 x10^3/uL (1.0-4.8) 0.4 x10^3/uL (1.0-4.8) Monocytes # (Auto) 1.6 x10^3/uL (0.0-1.1) 0.6 x10^3/uL (0.0-1.1) Eosinophils # (Auto) 0.1 x10^3/uL (0.0-0.7) 0.1 x10^3/uL (0.0-0.7) Basophils # (Auto) 0.1 x10^3/uL (0.0-0.2) 0.0 x10^3/uL (0.0-0.2) D-Dimer (Amalia) 2.65 ug/mlFEU (0.00-0.50) Sodium Level 141 mmol/L (136-145) 141 mmol/L (136-145) Potassium Level 3.2 mmol/L (3.5-5.1) 2.8 mmol/L (3.5-5.1) Chloride Level 101 mmol/L (98-107) 104 mmol/L (98-107) Carbon Dioxide Level 26 mmol/L (21-32) 25 mmol/L (21-32) Anion Gap 14 (6-14) 12 (6-14) Blood Urea Nitrogen 29 mg/dL (7-20) 25 mg/dL (7-20) Creatinine 1.7 mg/dL (0.6-1.0) 1.4 mg/dL (0.6-1.0) Estimated GFR (Cockcroft-Gault) 28.8 36.0 BUN/Creatinine Ratio 17 (6-20) Glucose Level 133 mg/dL (70-99) 115 mg/dL (70-99) Calcium Level 9.6 mg/dL (8.5-10.1) 8.5 mg/dL (8.5-10.1) Total Bilirubin 1.4 mg/dL (0.2-1.0) Aspartate Amino Transf (AST/SGOT) 19 U/L (15-37) Alanine Aminotransferase (ALT/SGPT) 18 U/L (14-59) Alkaline Phosphatase 162 U/L (46-116) Troponin I Quantitative < 0.017 ng/mL (0.000-0.055) Total Protein 8.3 g/dL (6.4-8.2) Albumin 3.1 g/dL (3.4-5.0) Albumin/Globulin Ratio 0.6 (1.0-1.7) Lipase 149 U/L (73-393) Urine Collection Type Unknown Urine Color Vera Urine Clarity Cloudy Urine pH 5.0 Urine Specific [place] 1.020 Urine Protein 30 mg/dL (NEG-TRACE) Urine Glucose (UA) Negative mg/dL (NEG) Urine Ketones (Stick) Negative mg/dL (NEG) Urine Blood Trace (NEG) Urine Nitrite Negative (NEG) Urine Bilirubin Small (NEG) Urine Urobilinogen Dipstick 1.0 mg/dL (0.2 mg/dL) Urine Leukocyte Esterase Moderate (NEG) Urine RBC Occ /HPF (0-2) Urine WBC 5-10 /HPF (0-4) Urine Squamous Epithelial Cells Many /LPF Urine Bacteria Many /HPF (0-FEW) Urine Hyaline Casts Few /HPF Urine Mucus Mod /LPF Segmented Neutrophils % 92 % (35-66) Band Neutrophils % 1 % (0-9) Lymphocytes % 3 % (24-48) Monocytes % 4 % (0-10) Platelet Estimate Adequate (ADEQUATE) Laboratory Tests Test 01/08/19 17:36 01/08/19 18:00 01/09/19 03:22 White Blood Count 15.4 x10^3/uL (4.0-11.0) 10.6 x10^3/uL (4.0-11.0) Red Blood Count 4.63 x10^6/uL (3.50-5.40) 3.98 x10^6/uL (3.50-5.40) Hemoglobin 14.0 g/dL (12.0-15.5) 12.1 g/dL (12.0-15.5) Hematocrit 42.0 % (36.0-47.0) 36.5 % (36.0-47.0) Mean Corpuscular Volume 91 fL (79-100) 92 fL (79-100) Mean Corpuscular Hemoglobin 30 pg (25-35) 30 pg (25-35) Mean Corpuscular Hemoglobin Concent 33 g/dL (31-37) 33 g/dL (31-37) Red Cell Distribution Width 13.5 % (11.5-14.5) 13.4 % (11.5-14.5) Platelet Count 297 x10^3/uL (140-400) 191 x10^3/uL (140-400) Neutrophils (%) (Auto) 80 % (31-73) 90 % (31-73) Lymphocytes (%) (Auto) 9 % (24-48) 3 % (24-48) Monocytes (%) (Auto) 10 % (0-9) 5 % (0-9) Eosinophils (%) (Auto) 1 % (0-3) 1 % (0-3) Basophils (%) (Auto) 1 % (0-3) 0 % (0-3) Neutrophils # (Auto) 12.3 x10^3/uL (1.8-7.7) 9.6 x10^3/uL (1.8-7.7) Lymphocytes # (Auto) 1.4 x10^3/uL (1.0-4.8) 0.4 x10^3/uL (1.0-4.8) Monocytes # (Auto) 1.6 x10^3/uL (0.0-1.1) 0.6 x10^3/uL (0.0-1.1) Eosinophils # (Auto) 0.1 x10^3/uL (0.0-0.7) 0.1 x10^3/uL (0.0-0.7) Basophils # (Auto) 0.1 x10^3/uL (0.0-0.2) 0.0 x10^3/uL (0.0-0.2) D-Dimer (Amalia) 2.65 ug/mlFEU (0.00-0.50) Sodium Level 141 mmol/L (136-145) 141 mmol/L (136-145) Potassium Level 3.2 mmol/L (3.5-5.1) 2.8 mmol/L (3.5-5.1) Chloride Level 101 mmol/L (98-107) 104 mmol/L (98-107) Carbon Dioxide Level 26 mmol/L (21-32) 25 mmol/L (21-32) Anion Gap 14 (6-14) 12 (6-14) Blood Urea Nitrogen 29 mg/dL (7-20) 25 mg/dL (7-20) Creatinine 1.7 mg/dL (0.6-1.0) 1.4 mg/dL (0.6-1.0) Estimated GFR (Cockcroft-Gault) 28.8 36.0 BUN/Creatinine Ratio 17 (6-20) Glucose Level 133 mg/dL (70-99) 115 mg/dL (70-99) Calcium Level 9.6 mg/dL (8.5-10.1) 8.5 mg/dL (8.5-10.1) Total Bilirubin 1.4 mg/dL (0.2-1.0) Aspartate Amino Transf (AST/SGOT) 19 U/L (15-37) Alanine Aminotransferase (ALT/SGPT) 18 U/L (14-59) Alkaline Phosphatase 162 U/L (46-116) Troponin I Quantitative < 0.017 ng/mL (0.000-0.055) Total Protein 8.3 g/dL (6.4-8.2) Albumin 3.1 g/dL (3.4-5.0) Albumin/Globulin Ratio 0.6 (1.0-1.7) Lipase 149 U/L (73-393) Urine Collection Type Unknown Urine Color Vera Urine Clarity Cloudy Urine pH 5.0 Urine Specific [place] 1.020 Urine Protein 30 mg/dL (NEG-TRACE) Urine Glucose (UA) Negative mg/dL (NEG) Urine Ketones (Stick) Negative mg/dL (NEG) Urine Blood Trace (NEG) Urine Nitrite Negative (NEG) Urine Bilirubin Small (NEG) Urine Urobilinogen Dipstick 1.0 mg/dL (0.2 mg/dL) Urine Leukocyte Esterase Moderate (NEG) Urine RBC Occ /HPF (0-2) Urine WBC 5-10 /HPF (0-4) Urine Squamous Epithelial Cells Many /LPF Urine Bacteria Many /HPF (0-FEW) Urine Hyaline Casts Few /HPF Urine Mucus Mod /LPF Segmented Neutrophils % 92 % (35-66) Band Neutrophils % 1 % (0-9) Lymphocytes % 3 % (24-48) Monocytes % 4 % (0-10) Platelet Estimate Adequate (ADEQUATE) Medications Current Medications Fentanyl Citrate (Fentanyl 2ml Vial) 25 mcg PRN Q15MIN PRN IV PAIN GREATER THAN 3/10 Last administered on 01/08/19at 17:59; Start 01/08/19 at 17:45; Stop 01/08/19 at 20:24; Status DC Sodium Chloride 1,000 ml @ 1,000 mls/hr Q1H IV Last administered on 01/08/19at 17:58; Start 01/08/19 at 17:39; Stop 01/08/19 at 18:38; Status DC Ondansetron HCl (Zofran) 4 mg 1X ONCE IV Last administered on 01/08/19at 17:58; Start 01/08/19 at 17:45; Stop 01/08/19 at 17:46; Status DC Piperacillin Sod/ Tazobactam Sod 3.375 gm/Sodium Chloride 50 ml @ 100 mls/hr 1X ONCE IV Last administered on 01/08/19at 19:40; Start 01/08/19 at 19:30; Stop 01/08/19 at 19:59; Status DC Potassium Chloride/Dextrose/ Sod Cl 1,000 ml @ 80 mls/hr [id number] IV Last administered on 01/08/19at 20:30; Start 01/08/19 at 20:30 Fentanyl Citrate (Fentanyl 2ml Vial) 50 mcg PRN Q2HR PRN IVP PAIN; Start 01/08/19 at 20:30 Ondansetron HCl (Zofran) 4 mg PRN Q6HRS PRN IVP NAUSEA/VOMITING; Start 12/12 11/29 at 20:30 Acetaminophen (Tylenol) 500 mg PRN Q6HRS PRN PO MILD PAIN / TEMP; Start 01/08/19 at 20:30 Acetaminophen/ Codeine Phosphate (Tylenol #3) 1 tab PRN Q6HRS PRN PO MODERATE PAIN; Start 01/08/19 at 20:30 Temazepam (Restoril) 7.5 mg PRN QHS PRN PO INSOMNIA; Start 01/08/19 at 20:30 Labetalol HCl (Normodyne Iv Push) 10 mg PRN Q2HR PRN IVP HYPERTENSION; Start 01/08/19 at 20:30 Pantoprazole Sodium (PROTONIX VIAL for IV PUSH) 40 mg 1X ONCE IVP Last administered on 01/08/19at 22:47; Start 01/08/19 at 20:30; Stop 01/08/19 at 20:31; Status DC Pantoprazole Sodium (PROTONIX VIAL for IV PUSH) 40 mg DAILYAC IVP Last adminis tered on 01/09/19at 10:14; Start 01/09/19 at 07:30 Guaifenesin (Robitussin Dm) 10 ml PRN Q6HRS PRN PO COUGH; Start 01/08/19 at 20:30 Calcium Carbonate/ Glycine (Tums) 500 mg PRN AFTMEALHC PRN PO INDIGESTION; Start 01/08/19 at 20:30 Potassium Chloride (Klor-Con) 20 meq 1X ONCE PO Last administered on 01/09/19at 10:17; Start 01/09/19 at 08:00; Stop 01/09/19 at 08:01; Status DC Potassium Chloride/Water 100 ml @ 100 mls/hr Q1H IV Last administered on 01/09/19at 10:10; Start 01/09/19 at 08:00; Stop 01/09/19 at 09:59; Status DC Ondansetron HCl (Zofran) 4 mg PRN Q6HRS PRN IV NAUSEA/VOMITING; Start 01/09/19 at 08:45; Stop 01/10/19 at 08:44 Fentanyl Citrate (Fentanyl 2ml Vial) 25 mcg PRN Q5MIN PRN IV MILD PAIN 1-3; Start 01/09/19 at 08:45; Stop 01/10/19 at 08:44 Fentanyl Citrate (Fentanyl 2ml Vial) 50 mcg PRN Q5MIN PRN IV MODERATE TO SEVERE PAIN; Start 01/09/19 at 08:45; Stop 01/10/19 at 08:44 Morphine Sulfate (Morphine Sulfate) 1 mg PRN Q10MIN PRN IV SEVERE PAIN 7-10; Start 01/09/19 at 08:45; Stop 01/10/19 at 08:44 Ringer's Solution 1,000 ml @ 30 mls/hr Q24H IV ; Start 01/09/19 at 08:39; Stop 01/09/19 at 20:38 Lidocaine HCl (Xylocaine-Mpf 1% 2ml Vial) 2 ml 1X PRN PRN ID IV START; Start 01/09/19 at 08:45; Stop 01/10/19 at 08:44 Hydromorphone HCl (Dilaudid) 0.5 mg PRN Q10MIN PRN IV SEV PAIN, Second choice; Start 01/09/19 at 08:45; Stop 01/10/19 at 08:44 Prochlorperazine Edisylate (Compazine) 5 mg PACU PRN PRN IV NAUSEA, MRX1; Start 01/09/19 at 08:45; Stop 01/10/19 at 08:44 Cefazolin Sodium/ Dextrose 50 ml @ 100 mls/hr 1X PREOP PRN IV main galley scullion to OR; Start 01/09/19 at 08:45; Stop 01/10/19 at 18:00 Piperacillin Sod/ Tazobactam Sod 3.375 gm/Sodium Chloride 50 ml @ 100 mls/hr Q6HRS IV ; Start 01/09/19 at 10:00; Status UNV Piperacillin Sod/ Tazobactam Sod 2.25 gm/Sodium Chloride 50 ml @ 100 mls/hr Q6HRS IV ; Start 01/09/19 at 10:00 Lidocaine HCl (Lidocaine Pf 2% Vial) 5 ml STK-MED ONCE .ROUTE ; Start 01/09/19 at 10:13; Stop 01/09/19 at 10:13; Status DC Propofol 20 ml @ As Directed STK-MED ONCE IV ; Start 01/09/19 at 10:13; Stop 01/09/19 at 10:13; Status DC Rocuronium Arnot (Zemuron) 50 mg STK-MED ONCE .ROUTE ; Start 01/09/19 at 10:13; Stop 10/30/19 at 10:13; Status DC Active Scripts Active Reported Omeprazole 20 Mg Capsule.dr 1 Cap PO DAILY Vitamin D3 (Cholecalciferol (Vitamin D3)) 1,000 Unit Tablet 2 Tab PO WEEKLY Krill Oil 500 Mg Capsule 500 Mg PO DAILY Metoprolol Tartrate 100 Mg Tablet 2 Tab PO BID Benicar (Olmesartan Medoxomil) 20 Mg Tablet 1 Tab PO DAILY Hydrochlorothiazide Tablet (Hydrochlorothiazide) 50 Mg Tablet 25 Mg PO DAILY Vitals/I & O Vital Sign - Last 24 Hours 01/08/19 01/08/19 01/08/19 01/08/19 17:35 17:59 18:30 19:30 Temp 99.0 99.0 Pulse 96 76 72 Resp 18 16 16 16 B/P (MAP) 201/86 (124) 154/65 (94) 131/61 (84) Pulse Ox 99 98 94 94 O2 Delivery Room Air Room Air Room Air Room Air 01/08/19 01/08/19 01/08/19 01/08/19 20:30 21:10 21:20 23:42 Temp 98.4 98.5 98.4 98.5 Pulse 70 72 69 Resp 16 18 18 B/P (MAP) 126/60 (82) 144/57 (86) 154/62 (92) Pulse Ox 94 97 96 O2 Delivery Room Air Room Air Room Air Room Air 01/09/19 01/09/19 03:43 07:15 Temp 98.3 98.6 98.3 98.6 Pulse 89 76 Resp 18 20 B/P (MAP) 161/64 (96) 141/57 (85) Pulse Ox 92 95 O2 Delivery Room Air Room Air Intake and Output 01/08/19 01/08/19 01/09/19 15:00 23:00 07:00 Intake Total 1000 ml 200 ml Balance 1000 ml 200 ml TRIXIE DEMPSEY MD Jan 09, 2019 10:36
[2019-01-09] MEDS: PIPERACILLIN/TAZOBACTAM 2.25 GM in IV NORMAL SALINE 50ML 50 ML IV SCH ×2 (12:58→18:24)
[2019-01-09] MEDS ORDERED: fentaNYL PF VIAL 100 MCG/2 ML VIAL ONE (13:33)
[2019-01-09] MEDS ORDERED: BUPIVACAINE MPF 0.5% 30 ML VIAL. ONE (13:45)
[2019-01-09] MEDS ORDERED: SURGICEL HEMOSTAT 4X8 EACH. ONE (13:45)
[2019-01-09] MEDS ORDERED: IOHEXOL 300 MG/ML 50 ML VIAL. ONE (13:45)
[2019-01-09] MEDS ORDERED: DESFLURANE 31 TO 60 MINUTES IH ONE (14:33)
[2019-01-09] MEDS ORDERED: DEXAMETHASONE SOD PHOS 20 MG/5 ML VIAL. ONE (14:33)
[2019-01-09] MEDS ORDERED: ONDANSETRON PF 4 MG/2 ML VIAL. ONE (14:43)
[2019-01-09] MEDS ORDERED: METOPROLOL TARTRATE 5 MG/5 ML VIAL. IVP ONE (14:57)
[2019-01-09] MEDS ORDERED: SURGICEL HEMOSTAT 4X8 EACH. TP ONE (15:14)
--- NOTE | 2019-01-09 15:38 | PDOC4 ---
Operative Note Operative Note Operative Note: Preoperative Diagnosis: Acute cholecystitis Postoperative Diagnosis: Same Procedure: Laparoscopic cholecystectomy with intraoperative cholangiogram Surgeons: Jose Tire Buffer: Iris FELIPE Anesthesia: Gen. Estimated Blood Loss: 20 mL Specimen: Gallbladder to pathology Drains: None Complications: None Indications: The patient is an 83-year-old female who reported to the hospital with abdominal pain. Her evaluation is consistent with acute cholecystitis. Surgical treatment was offered by means of a laparoscopic cholecystectomy. The risks of surgery were discussed which include bleeding, infection, bile duct injury, bile leak, pain, the potential for additional surgeries or procedures. The patient understands and would like to proceed. Description: The patient was taken to the operating room and laid supine on the operating table. General anesthesia was performed. The abdomen was prepped with ChloraPrep and draped in a standard surgical fashion. A small supraumbilical incision was made with a scalpel. The Veress needle was then inserted and a pneumoperitoneum was then created. A 5 mm trocar was then inserted and the laparoscope was introduced. In the upper midabdomen an 11 mm trocar was inserted and in the right upper quadrant two 5 mm trochars were inserted. The gallbladder was initially obscured by omentum adhered due to an inflammatory process. The omentum was peeled away revealing a markedly inflamed and distended gallbladder. Approximately 55 mL of clear fluid was aspirated providing gallbladder decompression. The gallbladder was retracted cephalad. The cystic duct was dissected free from surrounding tissues. One clip was placed on the duct near the gallbladder junction. An opening was made in the duct and a cholangiocatheter placed within and secured with a clip. Using contrast dye and fluoroscopy an intraoperative cholangiogram was performed that appeared unremarkable. The clip and catheter were then withdrawn. Three clips were placed on the cystic duct and it was divided. The cystic artery was then identified, dissected free, doubly clipped and divided as well. The gallbladder was then mobilized away from the liver with cautery. A Surgicel pack was placed on the gallbladder fossa to assist with hemostasis. The gallbladder was then placed in an endoscopic bag and extracted at the superior trocar site. The fascia there was closed with an PDS sutures. All blood and irrigation fluid was suctioned and hemostasis was good. The remaining ports were removed and the pneumoperitoneum was relieved. The skin incisions were closed using 4-0 Monocryl suture. Steri-Strips and dressings were then applied. The patient tolerated the procedure well and was sent to the recovery room in stable condition. At the end of the case all counts were correct. GENO NATH MD Jan 09, 2019 15:38
--- NOTE | 2019-01-09 15:40 | RAD ---
Exam: Cholangiogram intraoperative INDICATION: Abdominal pain TECHNIQUE: Several fluoroscopic images of the right upper quadrant were obtained during cholangiogram and submitted for interpretation. Number of images: 2 Comparisons: Ultrasound 11/08/2018 FINDINGS: Initial image demonstrates filling of the common bile duct and the distal cystic duct. There is mild narrowing of the common bile duct just above the level of the ampulla. Subsequent imaging demonstrates similar findings with mild opacification of the central intrahepatic ducts. Fluoroscopy time: 15.6 seconds IMPRESSION: Cholangiogram as described above. No filling of the gallbladder and persistent short segment narrowing of the common bile duct just proximal to the level of the ampulla at least on [address] procedural note for further details. Electronically signed by: Syed Grewal MD (01/09/2019 3:37 PM) [id number]
[2019-01-09] MEDS ORDERED: HYDROcodone/APAP 5/325MG 1 TAB TABLET PO PRN (15:45)
[2019-01-09] MEDS: fentaNYL PF VIAL 100 MCG/2 ML VIAL IV PRN ×2 (16:04→16:18)
[2019-01-09] MEDS: LABETALOL 20 MG/4 ML DISP.SYRIN. IVP PRN ×3 (16:09→16:33)
[2019-01-09] MEDS: LOSARTAN POTASSIUM 50 MG TABLET. PO SCH (18:00)
[2019-01-09] MEDS: hydroCHLOROthiazide 25 MG TABLET PO SCH (18:00)
[2019-01-09] MEDS: POTASSIUM CL 20MEQ D5-0.45NACL 1,000 ML IV SCH ×2 (18:28→21:30)
[2019-01-09] MEDS: METOPROLOL TART IMMED RELEASE 50 MG TABLET. PO SCH (21:24)
[2019-01-10] MEDS: PIPERACILLIN/TAZOBACTAM 2.25 GM in IV NORMAL SALINE 50ML 50 ML IV SCH ×3 (00:44→12:12)
[2019-01-10 03:52] VITALS: BP 156/76
[2019-01-10 05:51] LABS: BASO % 0 % (0-3); EOS % 0 % (0-3); HEMATOCRIT 35.1 % (36.0-47.0); HEMOGLOBIN 11.7 g/dL (12.0-15.5); LYMPH # 0.4 x10^3/uL (1.0-4.8); LYMPH % 4 % (24-48); MEAN CORPUSCULAR HEMOGLOBIN 31 pg (25-35); MEAN CORPUSCULAR HGB CONC 34 g/dL (31-37); MEAN CORPUSCULAR VOLUME 91 fL (79-100); MONO # 0.7 x10^3/uL (0.0-1.1); MONO % 7 % (0-9); NEUT # 8.5 x10^3/uL (1.8-7.7); NEUT % 89 % (31-73); PLATELET COUNT 233 x10^3/uL (140-400); RED BLOOD COUNT 3.83 x10^6/uL (3.50-5.40); RED CELL DISTRIBUTION WIDTH 13.5 % (11.5-14.5); WHITE BLOOD COUNT 9.6 x10^3/uL (4.0-11.0)
[2019-01-10 06:14] LABS: ALBUMIN 2.3 g/dL (3.4-5.0); ALBUMIN/GLOBULIN RATIO 0.5 (1.0-1.7); CALCIUM 8.7 mg/dL (8.5-10.1); CREATININE 1.4 mg/dL (0.6-1.0); POTASSIUM 3.7 mmol/L (3.5-5.1); TOTAL BILIRUBIN 0.9 mg/dL (0.2-1.0); TOTAL PROTEIN 6.8 g/dL (6.4-8.2)
[2019-01-10 07:15] VITALS: BP 171/61
[2019-01-10] MEDS ORDERED: PANTOPRAZOLE 40 MG TABLET.DR. PO SCH (07:30)
[2019-01-10] MEDS: POTASSIUM CL 20MEQ D5-0.45NACL 1,000 ML IV SCH (08:04)
[2019-01-10] MEDS: hydroCHLOROthiazide 25 MG TABLET PO SCH (08:07)
[2019-01-10] MEDS: METOPROLOL TART IMMED RELEASE 50 MG TABLET. PO SCH (08:08)
[2019-01-10] MEDS: LOSARTAN POTASSIUM 50 MG TABLET. PO SCH (08:09)
--- NOTE | 2019-01-10 08:45 | NUR ---
SW following pt for dc planning. Chart reviewed. Pt lives at home with spouse. PT/OT ordered and on hold yesterday due to low K. SW will continue to follow pt.
[2019-01-10] MEDS ORDERED: HYDR-2761 PO (09:28)
--- NOTE | 2019-01-10 09:28 | PDOC ---
SHILO DELGADILLO TRAINING AND DEVELOPMENT OFFICER 01/10/19 0928: SURGICAL PROGRESS NOTE Subjective tolerating diet pain managed ambulating urinating Vital Signs Vital Signs Date Time Temp Pulse Resp B/P (MAP) Pulse Ox O2 Delivery O2 Flow Rate FiO2 01/10/19 08:09 67 171/61 01/10/19 07:15 98.0 18 94 Room Air 98.0 01/09/19 16:35 2 I&O Intake and Output 01/10/19 07:00 Intake Total 1280 ml Output Total 20 ml Balance 1260 ml Intake Oral 480 ml IV Total 800 ml Output Estimated Blood Loss 20 ml # Voids 1 General: Alert, Oriented X3, Cooperative, No acute distress Abdomen: Soft, Other (lap dressings dry, incisional TTP) Labs Laboratory Tests Test 01/08/19 17:36 01/08/19 18:00 01/09/19 03:22 01/10/19 03:39 White Blood Count 15.4 x10^3/uL (4.0-11.0) 10.6 x10^3/uL (4.0-11.0) 9.6 x10^3/uL (4.0-11.0) Red Blood Count 4.63 x10^6/uL (3.50-5.40) 3.98 x10^6/uL (3.50-5.40) 3.83 x10^6/uL (3.50-5.40) Hemoglobin 14.0 g/dL (12.0-15.5) 12.1 g/dL (12.0-15.5) 11.7 g/dL (12.0-15.5) Hematocrit 42.0 % (36.0-47.0) 36.5 % (36.0-47.0) 35.1 % (36.0-47.0) Mean Corpuscular Volume 91 fL (79-100) 92 fL (79-100) 91 fL (79-100) Mean Corpuscular Hemoglobin 30 pg (25-35) 30 pg (25-35) 31 pg (25-35) Mean Corpuscular Hemoglobin Concent 33 g/dL (31-37) 33 g/dL (31-37) 34 g/dL (31-37) Red Cell Distribution Width 13.5 % (11.5-14.5) 13.4 % (11.5-14.5) 13.5 % (11.5-14.5) Platelet Count 297 x10^3/uL (140-400) 191 x10^3/uL (140-400) 233 x10^3/uL (140-400) Neutrophils (%) (Auto) 80 % (31-73) 90 % (31-73) 89 % (31-73) Lymphocytes (%) (Auto) 9 % (24-48) 3 % (24-48) 4 % (24-48) Monocytes (%) (Auto) 10 % (0-9) 5 % (0-9) 7 % (0-9) Eosinophils (%) (Auto) 1 % (0-3) 1 % (0-3) 0 % (0-3) Basophils (%) (Auto) 1 % (0-3) 0 % (0-3) 0 % (0-3) Neutrophils # (Auto) 12.3 x10^3/uL (1.8-7.7) 9.6 x10^3/uL (1.8-7.7) 8.5 x10^3/uL (1.8-7.7) Lymphocytes # (Auto) 1.4 x10^3/uL (1.0-4.8) 0.4 x10^3/uL (1.0-4.8) 0.4 x10^3/uL (1.0-4.8) Monocytes # (Auto) 1.6 x10^3/uL (0.0-1.1) 0.6 x10^3/uL (0.0-1.1) 0.7 x10^3/uL (0.0-1.1) Eosinophils # (Auto) 0.1 x10^3/uL (0.0-0.7) 0.1 x10^3/uL (0.0-0.7) 0.0 x10^3/uL (0.0-0.7) Basophils # (Auto) 0.1 x10^3/uL (0.0-0.2) 0.0 x10^3/uL (0.0-0.2) 0.0 x10^3/uL (0.0-0.2) D-Dimer (Amalia) 2.65 ug/mlFEU (0.00-0.50) Sodium Level 141 mmol/L (136-145) 141 mmol/L (136-145) 141 mmol/L (136-145) Potassium Level 3.2 mmol/L (3.5-5.1) 2.8 mmol/L (3.5-5.1) 3.7 mmol/L (3.5-5.1) Chloride Level 101 mmol/L (98-107) 104 mmol/L (98-107) 106 mmol/L (98-107) Carbon Dioxide Level 26 mmol/L (21-32) 25 mmol/L (21-32) 23 mmol/L (21-32) Anion Gap 14 (6-14) 12 (6-14) 12 (6-14) Blood Urea Nitrogen 29 mg/dL (7-20) 25 mg/dL (7-20) 20 mg/dL (7-20) Creatinine 1.7 mg/dL (0.6-1.0) 1.4 mg/dL (0.6-1.0) 1.4 mg/dL (0.6-1.0) Estimated GFR (Cockcroft-Gault) 28.8 36.0 36.0 BUN/Creatinine Ratio 17 (6-20) 14 (6-20) Glucose Level 133 mg/dL (70-99) 115 mg/dL (70-99) 157 mg/dL (70-99) Calcium Level 9.6 mg/dL (8.5-10.1) 8.5 mg/dL (8.5-10.1) 8.7 mg/dL (8.5-10.1) Total Bilirubin 1.4 mg/dL (0.2-1.0) 0.9 mg/dL (0.2-1.0) Aspartate Amino Transf (AST/SGOT) 19 U/L (15-37) 20 U/L (15-37) Alanine Aminotransferase (ALT/SGPT) 18 U/L (14-59) 17 U/L (14-59) Alkaline Phosphatase 162 U/L (46-116) 148 U/L (46-116) Troponin I Quantitative < 0.017 ng/mL (0.000-0.055) Total Protein 8.3 g/dL (6.4-8.2) 6.8 g/dL (6.4-8.2) Albumin 3.1 g/dL (3.4-5.0) 2.3 g/dL (3.4-5.0) Albumin/Globulin Ratio 0.6 (1.0-1.7) 0.5 (1.0-1.7) Lipase 149 U/L (73-393) Urine Collection Type Unknown Urine Color Vera Urine Clarity Cloudy Urine pH 5.0 Urine Specific [place] 1.020 Urine Protein 30 mg/dL (NEG-TRACE) Urine Glucose (UA) Negative mg/dL (NEG) Urine Ketones (Stick) Negative mg/dL (NEG) Urine Blood Trace (NEG) Urine Nitrite Negative (NEG) Urine Bilirubin Small (NEG) Urine Urobilinogen Dipstick 1.0 mg/dL (0.2 mg/dL) Urine Leukocyte Esterase Moderate (NEG) Urine RBC Occ /HPF (0-2) Urine WBC 5-10 /HPF (0-4) Urine Squamous Epithelial Cells Many /LPF Urine Bacteria Many /HPF (0-FEW) Urine Hyaline Casts Few /HPF Urine Mucus Mod /LPF Segmented Neutrophils % 92 % (35-66) Band Neutrophils % 1 % (0-9) Lymphocytes % 3 % (24-48) Monocytes % 4 % (0-10) Platelet Estimate Adequate (ADEQUATE) Laboratory Tests Test 01/10/19 03:39 White Blood Count 9.6 x10^3/uL (4.0-11.0) Red Blood Count 3.83 x10^6/uL (3.50-5.40) Hemoglobin 11.7 g/dL (12.0-15.5) Hematocrit 35.1 % (36.0-47.0) Mean Corpuscular Volume 91 fL (79-100) Mean Corpuscular Hemoglobin 31 pg (25-35) Mean Corpuscular Hemoglobin Concent 34 g/dL (31-37) Red Cell Distribution Width 13.5 % (11.5-14.5) Platelet Count 233 x10^3/uL (140-400) Neutrophils (%) (Auto) 89 % (31-73) Lymphocytes (%) (Auto) 4 % (24-48) Monocytes (%) (Auto) 7 % (0-9) Eosinophils (%) (Auto) 0 % (0-3) Basophils (%) (Auto) 0 % (0-3) Neutrophils # (Auto) 8.5 x10^3/uL (1.8-7.7) Lymphocytes # (Auto) 0.4 x10^3/uL (1.0-4.8) Monocytes # (Auto) 0.7 x10^3/uL (0.0-1.1) Eosinophils # (Auto) 0.0 x10^3/uL (0.0-0.7) Basophils # (Auto) 0.0 x10^3/uL (0.0-0.2) Sodium Level 141 mmol/L (136-145) Potassium Level 3.7 mmol/L (3.5-5.1) Chloride Level 106 mmol/L (98-107) Carbon Dioxide Level 23 mmol/L (21-32) Anion Gap 12 (6-14) Blood Urea Nitrogen 20 mg/dL (7-20) Creatinine 1.4 mg/dL (0.6-1.0) Estimated GFR (Cockcroft-Gault) 36.0 BUN/Creatinine Ratio 14 (6-20) Glucose Level 157 mg/dL (70-99) Calcium Level 8.7 mg/dL (8.5-10.1) Total Bilirubin 0.9 mg/dL (0.2-1.0) Aspartate Amino Transf (AST/SGOT) 20 U/L (15-37) Alanine Aminotransferase (ALT/SGPT) 17 U/L (14-59) Alkaline Phosphatase 148 U/L (46-116) Total Protein 6.8 g/dL (6.4-8.2) Albumin 2.3 g/dL (3.4-5.0) Albumin/Globulin Ratio 0.5 (1.0-1.7) Assessment/Plan s/p sudeep ok to dc home FU 2 weeks script e sent GENO NATH MD 01/10/19 1221: SURGICAL PROGRESS NOTE Assessment/Plan Agree with above SHILO DELGADILLO APRN Jan 10, 2019 09:28 GENO NATH MD Jan 10, 2019 12:21
[2019-01-10 10:56] VITALS: BP 139/59
--- NOTE | 2019-01-10 11:00 | PDOC ---
[facility] [facility] PROGRESS NOTE Chief Complaint Chief Complaint CHolecystitis. with cholelithiasis with chest pain. History of Present Illness History of Present Illness Patient is an 83-year-old female who presents today with complaint of right upper quadrant abdominal pain that started yesterday. She states that symptoms started out as what she described as severe heartburn on Monday in the center of her chest. She states that the heartburn resolved on Monday and then yesterday she started having the pain in her right upper abdomen that she states is worsened with deep breathing. She denies any nausea, vomiting or diaphoresis. Currently she rates the pain at a 5 out of 10. She states that at its worse it's been a 10 out of 10. She denies any cough or shortness of breath. She also denies any fever. Patient states that she has had no diarrhea.[] IMPRESSION Findings suspicious for acute cholecystitis Ultrasound of the right upper quadrant shows that patient has a gallstone and sludge as well as thickening of the gallbladder wall. No pericholecystic fluid seen. AST and ALT are within normal limits. Alk phosphatase is elevated. SEVERE HYPOKALEMIA, ON REPLACEMENT IV antibiotics started in the ED. 28 MIN PT EXAM, CHART REVIEW, > 50% OF TIME SPENT WITH EXAM, CHART REVIEW, PT CARE COORDINATION Operative Note Operative Note Operative Note Operative Note: Preoperative Diagnosis: Acute cholecystitis Postoperative Diagnosis: Same Procedure: Laparoscopic cholecystectomy with intraoperative cholangiogram Surgeons: Jose Adjunct Psychology Instructor: Iris FELIPE Anesthesia: Gen. Estimated Blood Loss: 20 mL Specimen: Gallbladder to pathology Drains: None Complications: None 01/10 Patient seen and examined on medical flood. First day post-op, laproscopic procedure. She appeared in good spirits. RICHARD RN, who states that the patient is eating well and is very active. Patient's wound dressings are noted to be clean and dry. Hope to discharge today. Vitals/I&O Vitals/I&O: Vital Signs Date Time Temp Pulse Resp B/P (MAP) Pulse Ox O2 Delivery O2 Flow Rate FiO2 01/10/19 08:09 67 171/61 01/10/19 08:00 Room Air 01/10/19 07:15 98.0 18 94 98.0 01/09/19 16:35 2 I & O 01/09/19 01/09/19 01/10/19 15:00 23:00 07:00 Intake Total 1040 ml 240 ml Output Total 20 ml Balance 1020 ml 240 ml Physical Exam General: Alert, Oriented X3, Cooperative, No acute distress Heart: Regular rate, Normal S1, Normal S2 Lungs: Clear Abdomen: Soft, Other (lap dressings dry, incisional TTP) Extremities: No clubbing, No cyanosis, No edema, Normal pulses Skin: No rashes, No breakdown, No significant lesion Labs Labs: Laboratory Tests Test 01/10/19 03:39 White Blood Count 9.6 x10^3/uL (4.0-11.0) Red Blood Count 3.83 x10^6/uL (3.50-5.40) Hemoglobin 11.7 g/dL (12.0-15.5) Hematocrit 35.1 % (36.0-47.0) Mean Corpuscular Volume 91 fL (79-100) Mean Corpuscular Hemoglobin 31 pg (25-35) Mean Corpuscular Hemoglobin Concent 34 g/dL (31-37) Red Cell Distribution Width 13.5 % (11.5-14.5) Platelet Count 233 x10^3/uL (140-400) Neutrophils (%) (Auto) 89 % (31-73) Lymphocytes (%) (Auto) 4 % (24-48) Monocytes (%) (Auto) 7 % (0-9) Eosinophils (%) (Auto) 0 % (0-3) Basophils (%) (Auto) 0 % (0-3) Neutrophils # (Auto) 8.5 x10^3/uL (1.8-7.7) Lymphocytes # (Auto) 0.4 x10^3/uL (1.0-4.8) Monocytes # (Auto) 0.7 x10^3/uL (0.0-1.1) Eosinophils # (Auto) 0.0 x10^3/uL (0.0-0.7) Basophils # (Auto) 0.0 x10^3/uL (0.0-0.2) Sodium Level 141 mmol/L (136-145) Potassium Level 3.7 mmol/L (3.5-5.1) Chloride Level 106 mmol/L (98-107) Carbon Dioxide Level 23 mmol/L (21-32) Anion Gap 12 (6-14) Blood Urea Nitrogen 20 mg/dL (7-20) Creatinine 1.4 mg/dL (0.6-1.0) Estimated GFR (Cockcroft-Gault) 36.0 BUN/Creatinine Ratio 14 (6-20) Glucose Level 157 mg/dL (70-99) Calcium Level 8.7 mg/dL (8.5-10.1) Total Bilirubin 0.9 mg/dL (0.2-1.0) Aspartate Amino Transf (AST/SGOT) 20 U/L (15-37) Alanine Aminotransferase (ALT/SGPT) 17 U/L (14-59) Alkaline Phosphatase 148 U/L (46-116) Total Protein 6.8 g/dL (6.4-8.2) Albumin 2.3 g/dL (3.4-5.0) Albumin/Globulin Ratio 0.5 (1.0-1.7) Review of Systems Review of Systems: Patient denies N/V and weakness. Assessment and Plan Assessmemt and Plan Assessment: CHolecystitis with cholelithiasis with chest pain Plan: 1. discharge today to home. Comment Review of Relevant I have reviewed the following items cookie (where applicable) has been applied. Medications: Current Medications Medications (Trade) Dose Ordered Sig/Suman Route PRN Reason Start Time Stop Time Status Last Admin Dose Admin Iohexol (Omnipaque 300 Mg/ml) 50 ml STK-MED ONCE .ROUTE 01/09/19 13:45 01/09/19 13:45 DC 01/09/19 14:46 Bupivacaine HCl (Sensorcaine Mpf 0.5%) 30 ml STK-MED ONCE .ROUTE 01/09/19 13:45 01/09/19 13:46 DC 01/09/19 14:46 Cellulose (Surgicel Hemostat 4x8) 1 each STK-MED ONCE TP 01/09/19 15:14 01/09/19 15:14 DC 01/09/19 15:14 Labetalol HCl (Normodyne Iv Push) 5 mg PRN Q5MIN PRN IVP HYPERTENSION 01/09/19 16:00 01/10/19 15:59 01/09/19 16:33 Hydrochlorothiazide (Hydrodiuril) 25 mg DAILY PO 01/09/19 18:00 01/10/19 08:07 Metoprolol Tartrate (Lopressor) 200 mg BID PO 01/09/19 21:00 01/10/19 08:08 Losartan Potassium (Cozaar) 100 mg DAILY PO 01/09/19 18:00 01/10/19 08:09 Pantoprazole Sodium (Protonix) 40 mg DAILYAC PO 01/10/19 07:30 01/10/19 08:07 MANOJ WALTON III DO Jan 10, 2019 11:00
--- NOTE | 2019-01-10 14:46 | NUR ---
SW following pt. PT/OT recommends home independent. No other needs identified at this time. SW will be available as needed.
[2019-01-10 15:15] VITALS: BP 154/62
--- NOTE | 2019-01-10 17:42 | NUR ---
Discharge Note: MARIA ISABEL HARRINGTON [address] Discharge instructions and discharge home medications reviewed with patient and a copy given. All questions have been answered and understanding verbalized. The following instructions and handouts were given: Prescription for lortab, e-script sent by surgeon, clarified with [facility] pharmacy . Follow up with Dr. Garcia after 2 weeks, call for appointment Surgical wound care instructions discussed with the patient, no heavy lifting, no tub baths in 2 weeks. Handouts for cholecystitis and cholecystectomy care after given. Watch out for fever, wound redness, discharge. Call MD Watch out for severe abdominal pain. Discontinued lines and drains: peripheral IV intact, patient tolerated removal, no complications noted. Patient discharged to home accompanied by spouse via wheelchair at 1710.
--- NOTE | 2019-01-11 12:03 | DS ---
DATE OF DISCHARGE: 01/10/2019 ADMISSION DIAGNOSIS: Symptomatic gallstones with cholecystitis. DISCHARGE DIAGNOSIS: Postoperative laparoscopic cholecystectomy. HOSPITAL COURSE: The patient is a pleasant elderly female, who presented with symptomatic gallstones. She was admitted. We consulted General Surgery. She was taken for laparoscopic cholecystectomy. Yesterday, when we saw her and examined her, she was doing great. She was up walking and eating. We discharged to home with karl Vora. DISPOSITION: Home. ACTIVITY: As tolerated. DIET: Low sodium. MEDICATIONS: Please see MRAD. TOTAL TIME: 33 minutes. NIAL Airam WALTON DO DR: OC/glenis JOB#: [id number] / [id number]
--- NOTE | 2019-01-14 16:06 | PATHOLOGY ---
[facility] Accession Number: [id number] . 01 Material submitted: . gallbladder - GALLBLADDER . 01 Clinical history: . Cholecystitis. . 02 Diagnosis: Gallbladder, cholecystectomy: - Acute and chronic cholecystitis with extensive mucosal erosion. - Cholelithiasis. (SK:[facility] [place]; 01/14/2019) S 01/14/2019 0708 Local . 02 Electronically signed: . Unruly Purcell MD, Pathologist NPI- [id number] . 01 Gross description: . Received in formalin labeled "Starr Beckett, gallbladder and contents" is an intact cholecystectomy specimen measuring 9.4 x 4.0 x 3.2 cm. The serosa is cason-brown and hemorrhagic with a full-thickness defect in the fundus measuring 0.9 cm. The specimen is opened to reveal red-brown hemorrhagic and ragged mucosa without polyps or masses. The average wall thickness is 0.2-0.4 cm. One ovoid green calculus is present measuring 2.7 cm in greatest dimension. [employer] sections of the fundus and body and the cystic duct margin are submitted in A1. ([facility] [place]; 01/10/2019) SY/[facility] 01/10/2019 1940 Local . 02 Pathologist provided ICD-10: K80.12 . 02 CPT . 729303 Specimen Comment: A courtesy copy of this report has been sent to [phone], [phone] Specimen Comment: [id number], , Specimen Comment: Report sent to ,DR BARILLAS,DR ORTEGA / DR BARILLAS Performed at: 01 [facility] [address] [id number] MD Ki aLndry MD Phone: [phone] Performed at: [address] [id number] MD Fransico Cantor MD Phone: [phone]
[2019-01-16] MEDS ORDERED: CHOLECALCIFEROL (VITAMIN D3) 1,000 UNIT TABLET PO SCH (09:00)
== END 2019-01-10 17:10 | disposition home or self-care (01) | DRG 417 ==
LOC: ER 17:20 → 6 SOUTH 19:35
PROVIDERS: ADMIT Internal Medicine; ATTEND Internal Medicine
PROC: BF101ZZ Fluoroscopy of Bile Ducts using Low Osmolar Contrast (ICD-10-PCS; 2019-01-09)
PROC: 0FT44ZZ Resection of Gallbladder, Percutaneous Endoscopic Approach (ICD-10-PCS; principal; 2019-01-09 14:30)
DX: K80.00 Calculus of gallbladder with acute cholecystitis without obstruction (principal); N17.0 Acute kidney failure with tubular necrosis; E87.6 Hypokalemia; E78.5 Hyperlipidemia, unspecified; I10 Essential (primary) hypertension; K21.9 Gastro-esophageal reflux disease without esophagitis; K76.0 Fatty (change of) liver, not elsewhere classified; E66.01 Morbid (severe) obesity due to excess calories; Z88.8 Allergy status to other drugs, medicaments and biological substances; Z68.32 Body mass index [BMI] 32.0-32.9, adult; Z82.49 Family history of ischemic heart disease and other diseases of the circulatory system
CPT/HCPCS: 36415; 71045; 74300; 76705; 78582; 80048; 80053; 81001; 83690; 84484; 85007; 85025; 85379; 87086; 93005; 96361; 96374; A7015; A9540; A9558; C9113; J0696; J1100; J2001; J2405; J2543; J2704; J3010; J3480; J3490; J7030; J7120; Q9967; 97110; 99285-25; G0378